=== PATIENT | female | born 1980 | race Caucasian/White ===

== ENCOUNTER 2017-08-21 17:01 | Emergency (ER) | payer OTHER ==
[~2017-08-21] VITALS: Ht 172.7 cm; Wt 121.6 kg
[~2017-08-21 17:01] MED LIST: DOCUSATE SODIU100 M3 PO; IBUPROFEN800 M1 PO; PERCOCET 5-3251 EACH PO; REGLAN10 MG PO
--- NOTE | 2017-08-21 17:13 | ED GENERAL ADULT ---
History of Present Illness General Chief Complaint: General Adult Stated Complaint: 30 WKS PREG WITH ABD PAIN AND CRAMPING Source: patient Exam Limitations: no limitations Vital Signs & Intake/Output Vital Signs & Intake/Output Vital Signs Date Time Temp Pulse Resp B/P B/P Pulse O2 O2 Flow FiO2 Mean Ox Delivery Rate 08/21 2002 98.2 64 18 116/66 97 Room Air Room Air 08/21 1706 98.0 70 18 126/77 967 Room Air Allergies Coded Allergies: shellfish derived (Severe, ANAPHYLAXIS 09/07/15) Penicillins (HIVES 07/19/15) Reconcile Medications Docusate Sodium 100 MG CAPSULE 100 MG PO AT BEDTIME PRN STOOL SOFTENER Ibuprofen 800 MG TABLET 800 MG PO Q6P PRN PAIN SCALE 4-6 Oxycodone HCl/Acetaminophen (Percocet 5-325 MG Tablet) 1 EACH TABLET 1 TAB PO Q4P PRN PAIN SCALE 7-8 Triage Note: RECEIVED 36 YO FEMALE 30 WEEKS , , PT DUE 11/02/17. PT REPORTS LOWER ABOMINAL CRAMPING X ONE WEEK WITH NAUSEA AND DIARRHEA. PT WAS SEEN IN AN ED LAST WEEK FOR VAGINAL SPOTTING, U/S DONE. SPOKE TO GARY IN [facility] WHO IS REQUESTING PT BE INITIALLY EVALUATED IN THE ED. POSITIVE MOVEMENTS. Triage Nurses Notes Reviewed? yes Onset: Abrupt Duration: day(s): Timing: recent history HPI: 08/21/17 8:34 PM This is a 36-year-old 2 para 1 female who presents to the emergency department for vomiting, diarrhea, and abdominal cramping. She says she was recently seen in the emergency department for the same symptoms. She says she's been evaluated several times in the childbirth center and told that she had low amniotic fluid levels. She is requesting ultrasound. She says her ART TEACHER physician Dr. Purvis Center in for evaluation. She denies fever, abdominal pain, or vaginal bleeding good. Past History Travel History Traveled to [place] past 21 day No Medical History Any Pertinent Medical History? see below for history Neurological: NONE EENT: NONE Cardiovascular: NONE Respiratory: NONE Gastrointestinal: NONE Surgical History Surgical History: non-contributory Psychosocial History What is your primary language Czech Family History Hx Contributory? No Review of Systems Review of Systems Constitutional: Denies: fever. EENTM: Reports: no symptoms. Respiratory: Denies: short of breath. Cardiovascular: Denies: chest pain. GI: Reports: vomiting. Denies: abdominal pain. Genitourinary: Reports: no symptoms. Musculoskeletal: Reports: no symptoms. Skin: Reports: no symptoms. Neurological/Psychological: Reports: no symptoms. Hematologic/Endocrine: Reports: no symptoms. Immunologic/Allergic: Reports: no symptoms. Physical Exam Physical Exam General Appearance: well developed/nourished, alert, awake, anxious, mild distress Head: atraumatic, normal appearance Eyes: Bilateral: normal appearance, PERRL, EOMI. Ears, Nose, Throat: normal pharynx, normal ENT inspection Neck: normal inspection, supple, full range of motion Respiratory: normal breath sounds, chest non-tender, no respiratory distress Cardiovascular: regular rate/rhythm Peripheral Pulses: 4+ radial (R), 4+ radial (L) Gastrointestinal: non-tender Back: normal range of motion Extremities: no edema Neurologic/Psych: no motor/sensory deficits, awake, alert, oriented x 3 Skin: intact, normal color, warm/dry Core Measures ACS in differential dx? No CVA/TIA Diagnosis: No Sepsis Present: No Sepsis Focused Exam Completed? No Progress Differential Diagnoses I considered the following diagnoses in my evaluation of the patient: [ labor, oligohydramnios, dehydration, gastroenteritis, urinary tract infection] Plan of Care: Orders Procedure Date/time Status RAPID VIRAL INFLUENZA A 08/21 1720 Complete CULTURE,URINE 08/21 171 Active URINALYSIS 08/21 171 Complete COMPREHENSIVE METABOLIC PANEL 08/21 171 Complete CBC WITHOUT DIFFERENTIAL 08/21 171 Complete ACETONE 08/21 171 Complete Current Medications Sig/Tristan Start time Last Medication Dose Stop Time Status Admin Sodium Chloride 1,000 ML ONCE ONE 08/21 1715 AC 08/21 (Normal Saline 0.9%) 08/21 2354 1736 Laboratory Tests 08/21/17 1842: Urinalysis MOD H, Urine Color YEL, Urine Clarity CLDY H, Urine pH 6.5, Ur Specific Bluebell 1.025, Urine Protein NEG, Urine Ketones 15 H, Urine Nitrite NEG, Urine Bilirubin NEG, Urine Urobilinogen 0.2, Ur Leukocyte Esterase TRACE H , Ur Microscopic SEDIMENT EXAMINED, Urine RBC RARE, Urine WBC 1-3 H, Ur Epithelial Cells MANY H, Urine Bacteria MOD H, Urine Hemoglobin NEG, Urine Glucose NEG 08/21/17 1730: Anion Gap 8, Estimated GFR > 60, BUN/Creatinine Ratio 17.5, Glucose 87, Calcium 9.7, Total Bilirubin 0.3, AST 14, ALT 17, Alkaline Phosphatase 73, Total Protein 6.3, Albumin 3.4 L, Globulin 2.9, Albumin/Globulin Ratio 1.2, CBC w Diff NO MAN DIFF REQ, RBC 3.68 L, MCV 94.3, MCH 32.2 H, MCHC 34.1, RDW 13.2, MPV 7.7, Gran % 72.2, Lymphocytes % 20.2 L, Monocytes % 6.2, Eosinophils % 1.0, Basophils % 0.4, Absolute Granulocytes 7.2 H, Absolute Lymphocytes 2.0, Absolute Monocytes 0.6, Absolute Eosinophils 0.1, Absolute Basophils 0, Acetone Level NEGATIVE Microbiology 08/22 1843 NASOPHARYN: Influenza Virus A & B Rapid Smear - COMP 08/21 1841 URINE ROUT: Urine Culture - RECD Initial ED EKG: none Departure Departure Disposition: HOME OR SELF CARE Condition: Stable Clinical Impression Primary Impression: Referrals: Aaron MERCER,Nilesh Contreras (PCP/Family) Departure Forms: Customer Survey General Discharge Information Comments PATIENT: ROLA MERRITT PRESENT AGE: 36 PATIENT ACCOUNT NO: [id number] : 78 LOCATION: [facility] ORDERING PHYSICIAN: Chaparro Wu DO SERVICE DATE: 08/21/17 EXAM TYPE: US - US- VIABILITY Examination: US- VIABILITY Indication: 30 WEEKS CRAMPING Comparison: No pertinent prior studies are currently available for comparison. Technique: Multiple sonographic views of the fetus were obtained in patient with an unknown last menstrual period with an ultrasound estimated age of 29 weeks 5 days. Findings: The examination reveals a single live intrauterine . heart rate of 132 bpm was obtained. There is normal amniotic fluid volume. Amniotic index is 24.5 cm. Posterior placenta Fetus is in transverse breech position. motion was seen. biometrics are as follows: BPD 7.81 cm (31 weeks 3 days HC 27.89 cm (30 weeks 4 days), AC 24.65 cm (29 weeks 0 days) FL 5.16 cm (27 weeks 4 days). This corresponds with an ultrasound estimated mean age of 29 weeks 5 days and an estimated due date of 11/01/2017. Estimated weight is 1281 +/- 1 187 g. Impression: Single live intrauterine of 29 weeks 5 days ultrasound estimated mean age as described above. DICTATED BY: Colby Vance MD DATE/TIME DICTATED:08/21/171902 EMERGENCY PHYSICIAN:LETTY DATE/TIME TRANSCRIBED:08/21/171902 CONFIDENTIAL, DO NOT COPY WITHOUT APPROPRIATE AUTHORIZATION. <Electronically signed in Other Vendor System> SIGNED BY: Colby Vance MD 1913 The patient's labs were unremarkable. Ultrasound showed normal amount of amniotic fluid. The patient received a liter of IV fluids. She denied any abdominal pain in the Emergency Department. She was instructed to go to the childbirth Center for monitoring however she refused. She says she has no symptoms now and is following up with Dr. Purvis tomorrow. I discussed the patient's care with Dr. Purvis who agreed with the plan. The patient was instructed to return immediately to the emergency department if fever, vomiting, or any abdominal pain. She will follow-up with Dr. Purvis tomorrow morning. Critical Care Note Critical Care Note Critical Care Time: non-applicable
[2017-08-21 17:43] LABS: ABSOLUTE BASOPHIL COUNT 0 /CUMM (0.0-0.2); ABSOLUTE EOSINOPHIL COUNT 0.1 /CUMM (0.0-0.7); ABSOLUTE GRANULOCYTE CT 7.2 /CUMM (1.4-6.5); ABSOLUTE MONOCYTE COUNT 0.6 /CUMM (0.10-0.60); BASOPHIL % 0.4 % (0.0-2.0); GRANULOCYTE % 72.2 % (42.2-75.2); HEMATOCRIT 34.7 % (37-47); MEAN CORPUSCULAR HGB 32.2 PG (27.0-31.0); MEAN CORPUSCULAR HGB CONC 34.1 G/DL (33.0-37.0); MEAN CORPUSCULAR VOLUME 94.3 FL (81.0-99.0); MEAN PLATELET VOLUME 7.7 FL (7.4-10.4); PLATELET COUNT 265 /CUMM (130-400); RBC DISTRIBUTION WIDTH 13.2 % (11.5-14.5); RED BLOOD CELL CT 3.68 /CUMM (4.20-5.40)
--- NOTE | 2017-08-21 19:14 | ULTRASOUND REPORT ---
Examination: US- VIABILITY Indication: 30 WEEKS CRAMPING Comparison: No pertinent prior studies are currently available for comparison. Technique: Multiple sonographic views of the fetus were obtained in patient with an unknown last menstrual period with an ultrasound estimated age of 29 weeks 5 days. Findings: The examination reveals a single live intrauterine . heart rate of 132 bpm was obtained. There is normal amniotic fluid volume. Amniotic index is 24.5 cm. Posterior placenta Fetus is in transverse breech position. motion was seen. biometrics are as follows: BPD 7.81 cm (31 weeks 3 days HC 27.89 cm (30 weeks 4 days), AC 24.65 cm (29 weeks 0 days) FL 5.16 cm (27 weeks 4 days). This corresponds with an ultrasound estimated mean age of 29 weeks 5 days and an estimated due date of 11/01/2017. Estimated weight is 1281 +/- 1 187 g. Impression: Single live intrauterine of 29 weeks 5 days ultrasound estimated mean age as described above.
[2017-08-21 20:03] VITALS: BP 116/66
== END 2017-08-21 20:45 ==
LOC: ERH 17:01
PROVIDERS: Emergency Medicine
DX: O26.93 Pregnancy related conditions, unspecified, third trimester (principal); R10.9 Unspecified abdominal pain; Z3A.30 30 weeks gestation of pregnancy
CPT/HCPCS: 81001; 87086; 87804; 87804-59

== ENCOUNTER 2017-11-02 06:03 | Inpatient (IN) | payer OTHER ==
[~2017-11-02] VITALS: Ht 172.7 cm; Wt 122.5 kg
[~2017-11-02 06:03] MED LIST changes: +DELTASONE20 MG PO; +PROAIR HFA8.5 GM INH; +VITAFOL ULTRA1 EACH PO
--- NOTE | 2017-11-02 08:52 | History & Physical Pre-Op ---
General Information and HPI MD Statement: I have seen and personally examined ROLA MERRITT and documented this H&P. The patient is a 36 year old F who presented with a patient stated chief complaint of repeat section and multiparity []. History of Present Illness: 36-year-old 2 para 1001 at 39 weeks gestation previous section with a history of bipolar disease who is had adequate care adequate care was a late registrant but was compliant with her care. Patient has had polyhydramnios throughout her she's had normal anatomy scans on her lab work has been normal I she desires permanent sterility a tu a tubal ligation we've discussed the risks and benefits and failure rates of one every 2014 that we performbal ligation we have discussed the risks and benefits and failure rates of 1 every 2049 that we performed with patient has had polyhydramnios throughout her she has had normal anatomy scans was a late registrant but was compliant with her care. B her lab work has been normal she desires permanent sterility with ipolar disease who is had 36- year-old 2 para 1001 at 39 weeks gestation with previous section with a history of Allergies/Medications Allergies: Coded Allergies: shellfish derived (Severe, ANAPHYLAXIS 09/07/15) Penicillins (HIVES 07/19/15) Home Med list Albuterol Sulfate (Proair Hfa) 90 MCG HFA.AER.AD 2 PUF INH Q6 PRN ASTHMA/ WHEEZING Pnv#67/Iron Ps/FA Cmb#1/Dha (Vitafol Ultra Softgel) 29 MG IRON-1 MG-200 MG CAPSULE 1 CAP PO DAILY (Reported) Past History Medical History Neurological: NONE EENT: NONE Cardiovascular: NONE Respiratory: NONE Gastrointestinal: NONE Hepatic: NONE Renal: NONE Musculoskeletal: NONE Psychiatric: NONE Endocrine: NONE Blood Disorders: NONE Cancer(s): NONE Surgical History Pertinent Surgical History: non-contributory Past Family/Social History Psychosocial History Smoking Status: Current Everyday Smoker Review of Systems Review of Systems: --13 point review of systems Exam & Diagnostic Data Last 24 Hrs of Vital Signs/I&O Intake & Output 11/02 1600 / 0800 11/02 0000 Intake Total Output Total Balance Patient 270 lb Weight Physical Exam: Obese white femaleObese white female HEENT icteric Lungs clear Heart S1 and S2 Abdomen soft nontenderHEENT anicteric Lungs clear Heart S1-S2 Abdomen soft nontender and sealed skin incision Pfannenstiel skin incision External is +1 edema negative Homans sign cervix long closed Cervix long closed extremities +1 edema negative Homans Assessment/Plan Assessment/Plan: Assessment term previous section multiparity excellent plan clindamycin and gentamicin section tubal ligation Plan clindamycin and gentamicin section tubal ligation aterm previous section multiparity Assessment As Ranked By This Provider Problem List: 1.
--- NOTE | 2017-11-02 09:03 | Operative Report ---
Operative/Inv Procedure Report Surgery Date: 11/02/17 Name of Procedure: Repeat low flap transverse section bilateral tubal ligation via Irma technique Pre-Operative Diagnosis: Multiparity term previous sectio Post-Operative Diagnosis: Same Estimated Blood Loss: 750 Surgeon/Mechanical Test Technician: Yaniv MERCER,Claudette Stephen Anesthesia: block Operative/Procedure Note Note: Procedure note patient was taken to the operating room placed on position after adequate skin testing for spinal anesthesia and timeout was performed antibiotics have been given the abdomen was prepped and draped so fashion Blackwell had been placed sterilely this point through an old Pfannenstiel skin incision skin was cut was carried down to rectus fascia which was cut in curvilinear fashion I direction peritoneal cavity was entered high into the abdomen . The lower blade the Rumney was placed in the lower end of the incision to protect the bladder the bladder flap was developed sharply as well as bluntly hemostasis was apparent in the lower uterine segment the uterus was nicked into with the back of the knife's point on sponge moved from the field incision was dissected bluntly over the abdominal wall the cord was clamped and cut was handed resolution rep was waiting delivering to aid in resuscitation placenta was delivered manually noted to be intact was wiped clean with wet dry laps to ensure was free of adherent membranes uses oversewn running locking suture was indicated interrupted [id number] hemostasis was apparent at this point the right tube was picked up with a Zeyad identified suture-ligated 3 caulked beaklike left tube was picked up carried to its fimbriated end possibly 7 cm that tube was clamped times to contact oversewn 3 endosalpinx was Bovie coagulated hemostasis was apparent. The uterus was returned to abdominal cavity all pedicles incisions were reexamined and found to be hemostatic intact the abdomen was area close amounts warm saline once again peritoneum surprise me 0 partial was reapproximated to continue sutures of #1 skin was reapproximated using latisha the end of the case the counts were correct. Sterile dressing was applied urine was clear and transported recovery room awake alert with possibly 7 centimeters of that tube was clamped cut and oversewn 3 the specimen was removed and sent to pathology the endosalpinx was Bovie coagulated. Tolerated well the uterus was turned to the abdominal cavity the incisions were reexamined found to be hemostatic the abdomen was irrigated copious amounts of saline to clear was clamped cut and oversewn 3 specimen was removed sent to pathology the endosalpinx Bperitoneum was reapproximated 0 the fascia was reapproximated into condition sutures 1 scheduled approximate latisha at the end the case counts correct urine was clear mother and were transferred recovery room awake alert with counts correct ovie coagulated. Tolerated well perineum was reapproximated 0 fascia was reported to continue sutures #1 skin was reapproximated latisha at the end the case counts were correct the uses transabdominal cavity the incisions were reexamined found to be hemostatic the abdomen was irrigated) once into clear urine was clear mother and infant were transferred recovery room awake and alert counts correct centimeters of that tube endosalpinx after the specimen had been removed and oversewn 3 left tube was picked up carried through to be examined approximately 7 cm tube was Bovie coagulated d was closed with running locking suture . 0 was imbricated with interrupted [id number] the right tube was picked up chart was reviewed and approximately 7 cm at tube was clamped cut and oversewn 3 Al wall cord was clamped 2 cut and the infant was handed to pediatricians waiting the liver and in the resuscitationdissected bluntly as well as sharply AND significant for field placenta was delivered manually noted to be intact was likely due to a dry laps to ensure it is free of adherent membranes the uterus is delivered onto the abdominal wall. And with the back and knife dissected bluntly as well as sharply wants something from the field the lower uterine segment use, and the peritoneal cavity was entered high into the abdomen to avoid the bladder the lower blade of the Tom was placed in lower into the incision the visceral peritoneum of the uterus was dissected anteriorly the lower uterine segment was thin presented with the back of the knife the bladder blade had been replaced to protect the bladder patient tolerated this well. Skin testing was performed and found to be adequate for surgery the abdomen was prepped and draped in sterile fashion onal patient was taken to the operating room placed in supine position
--- NOTE | 2017-11-03 12:22 | PN- Post Delivery/GYN ---
Subjective Subjective: C/O SOB Objective Last 24 Hrs of Vital Signs/I&O Vital Signs Date Time Temp Pulse Resp B/P B/P Pulse O2 O2 Flow FiO2 Mean Ox Delivery Rate 11/02 1843 Room Air Physical Exam: PE WELL BUILT WF IN NAD LUNG S DECREASE BS AT BOTH BASES ABD SOFT NT INCISION CDI EXT -EDEMA -RIANNA Assessment/Plan Assessment/Plan ASSESS S/P C/S SOB QUESTION PE PNEUMONIA HISTORY OF MANIC DEPRESSION PLAN MED CONSULT AND PYSCHIATRY
--- NOTE | 2017-11-03 12:34 | Cons- Psychiatry ---
Psychiatric Consult Date of Consult: 11/03/17 Reason for Consult: Management of a bipolar disorder. History of Present Illness: Patient is a 36-year-old single white female S/P on 11/02/17, history of Bipolar (? Bipolar II), off medications since 22 weeks of . Mood was "okay" during the remainder of . Yesterday and today experienced anxiety and tearfulness. No wishes of or thinking of suicide. No thoughts or urges to harm baby or anyone else. No manic and no psychotic symptoms. Cognitively intact. Allergies: Coded Allergies: shellfish derived (Severe, ANAPHYLAXIS 09/07/15) Penicillins (HIVES 07/19/15) Current Medications: Current Medications Sig/Tristan Start time Last Medication Dose Route Stop Time Status Admin Acetaminophen 1,000 MG Q6P PRN 11/02 1145 AC 11/03 N/A 1 UNIT IV 0334 Acetaminophen 650 MG Q4P PRN 11/02 0800 AC PO Albuterol Sulfate 3 ML BID 11/03 2100 AC INH Albuterol Sulfate 2 PUF Q4P PRN 11/02 1845 AC 11/03 INH 1201 Alprazolam 0.25 MG Q6P PRN 11/02 2000 AC 11/03 PO 11/09 195 1321 Benzonatate 100 MG TID 11/03 2100 AC PO Bisacodyl 5 MG DAILY NEEDED PRN 11/02 0800 AC PO Diphenhydramine HCl 25 MG Q6P PRN 11/02 0930 DC 11/02 IV 11/03 0829 1019 Docusate Sodium 100 MG AT BEDTIME PRN 11/02 0800 AC PO Enoxaparin Sodium 40 MG 2030 11/02 2030 AC 11/02 SC 2036 Guaifenesin 600 MG Q12 11/03 2100 AC PO Hydroxyzine HCl 50 MG AT BEDTIME NEED.. 11/03 0000 AC PO Ibuprofen 800 MG Q6P PRN 11/02 0800 AC 11/03 PO 1710 Ketorolac 30 MG Q6P PRN 11/02 0930 DC 11/03 Tromethamine IV 11/03 0929 0618 Lactated Ringer's 1,000 ML Q8H 11/02 0800 AC 11/03 IV 0230 Lactated Ringer's 1,000 ML Q8H 11/02 0645 AC 11/02 IV 0622 Magnesium Hydroxide 30 ML DAILY NEEDED PRN 11/03 799 AC PO Metoclopramide HCl 10 MG Q6P PRN 11/02 0815 DC IV 11/03 09 Naloxone HCl 0.2 MG .Q5MIN PRN 11/02 0815 DC IV 11/03 913 Oxycodone/ 1 TAB Q4P PRN 11/02 08 AC 11/03 Acetaminophen PO 0915 Oxycodone/ 2 TAB Q4P PRN 11/02 08 AC 11/03 Acetaminophen PO 1710 Prednisone 40 MG DAILY 11/03 1803 AC PO 11/06 09 Senna 187 MG AT BEDTIME NEED.. 11/02 08 AC PO Past History Past Medical History Neurological: NONE EENT: NONE Cardiovascular: NONE Respiratory: NONE Gastrointestinal: NONE Hepatic: NONE Renal: NONE Musculoskeletal: NONE Psychiatric: NONE Endocrine: NONE Blood Disorders: NONE Cancer(s): NONE Past Surgical History Surgical History: non-contributory Psychosocial History Strengths/Capabilities: supportive boyfriend at bedside, good insight, no evidence of alcohol or drug abuse Physical Limitations (Interventions): denied Psychiatric Treatment History Psych Treatment Psychiatric Treatment Yes Inpatient Treatment No Outpatient Treatment Yes Location of Treatment [facility] Reason for Treatment ? Bipolar (may be Bipolar II) Dates of Treatment up until 22 weeks of this Response to Treatment she said she was doing well on a regimen of 3 medications Diagnosis: Bipolar with post- worsening by history Risk Factors: Mood Disorder with post- worsening by history Substance Use/Abuse History Drug Use/Abuse Substances Used/Abused No Substance Abuse Treatment Substance Abuse Treatment Past Substance Abuse [place] No Assessment/Plan Mental Status Mental Status Exam: alert and oriented to time, place, and person calm, cooperative and pleasant boyfriend/father of child at bedside, baby at bedside normal speech/not pressured/not slurred normal psychomotor activity/no agitation or restlessness good eye contact, cognitively intact, normal intelligence mood was not depressed until yesterday and today, reported some tearfulness no sense of hopelessness, no sense of worthlessness, not consumed by guil denied wishing or thinking of suicide denied violent thoughts or homicidal thoughts or urges towards baby or anyone else denied feeling paranoid and there were no delusions she was coherent and no thought disorder denied hallucinations and did not seem to be hallucinating no issues with information processing or short term memory good judgement and insight Lab Results: Laboratory Tests 11/03 1700 Hematology CBC w Diff NO MAN DIFF REQ WBC (4.8 - 10.8 /CUMM) 9.1 RBC (4.20 - 5.40 /CUMM) 3.47 L Hgb (12.0 - 16.0 G/DL) 10.8 L Hct (37 - 47 %) 32.1 L MCV (81.0 - 99.0 FL) 92.6 MCH (27.0 - 31.0 PG) 31.1 H MCHC (33.0 - 37.0 G/DL) 33.6 RDW (11.5 - 14.5 %) 13.3 Plt Count (130 - 400 /CUMM) 228 MPV (7.4 - 10.4 FL) 8.1 Gran % (42.2 - 75.2 %) 70.4 Lymphocytes % (20.5 - 51.1 %) 23.7 Monocytes % (1.7 - 9.3 %) 5.4 Eosinophils % (0 - 5 %) 0.3 Basophils % (0.0 - 2.0 %) 0.2 Absolute Granulocytes (1.4 - 6.5 /CUMM) 6.4 Absolute Lymphocytes (1.2 - 3.4 /CUMM) 2.2 Absolute Monocytes (0.10 - 0.60 /CUMM) 0.5 Absolute Eosinophils (0.0 - 0.7 /CUMM) 0 Absolute Basophils (0.0 - 0.2 /CUMM) 0 Diffential Diagnosis: Unspecified Bipolar (likely Bipolar II) with history of post- depressions Impression: 36-year-old white female who has been treated historically for bipolar disorder. She was seeing a psychiatric [facility] who was prescribing her a combination of Risperdal, lithium, and Xanax. The patient stopped all these medications when she was about 22 weeks . She reported that she has not been back to see the psychiatric nurse practitioner since. The patient did not have any major symptoms of depressive episode or manic episode for the duration of her but reported that she was starting to feel somewhat panicky yesterday and today and she is worried that the depression is a strong possibility and she wants to get ahead of it. She reported that she did have depression after a previous delivery. No current evidence of risk to self or baby. Provisional Treatment Plan: Recommendations: No need for inpatient psychiatric care. Patient may be discharged at the will of her DENTAL SALES REPRESENTATIVE attending The patient has the capacity to make treatment decisions including signing AGAINST MEDICAL ADVICE. I recommend replacing Xanax with Klonopin 1 mg to be taken once daily as needed either for anxiety or for insomnia I discussed options with the patient and she was agreeable to starting Lexapro 10 mg once daily until she sees her psychiatric nurse practitioner
--- NOTE | 2017-11-03 15:47 | Cons- Medical ---
Maricruz Mark 11/03/17 1546: General Information and HPI Consulting Request Date of Consult: 11/03/17 Requested By: Yaniv MERCER,Claudette Ochoa Reason for Consult: Shortness of breath Source of Information: patient Exam Limitations: no limitations History of Present Illness: Patient is a 36-year-old female, past medical history of asthma, recently had a on 11/04/17, reported of having difficulty breathing. Patient reports that she has been having difficulty breathing since past 3 weeks, at that time she informed Dr. Benitez, and she was given Z-Lane. Patient states that she did not get any relief with a Z-Lane and 2 weeks ago, she came to ER at that time she was given prednisone and inhaler. Patient states that chest x-ray could not be done as she was at that time. And she reports that her symptoms did not improve with the steroids. She has been using inhalers 3-4 times daily. She also reports off dry cough since 3 weeks. She did initially have greenish sputum but that cleared to white and nonproductive. Patient denies any fever or chills, any sick contacts at home. She states that her last asthma exacerbation was 3 years ago and she has been stable. Patient also reports oF pregnacy related bilateral lower extremity swelling. Patient denies any chest pain, palpitations, headache, dizziness, burning micturition. Allergies/Medications Allergies: Coded Allergies: shellfish derived (Severe, ANAPHYLAXIS 09/07/15) Penicillins (HIVES 07/19/15) Home Med List: Albuterol Sulfate (Proair Hfa) 90 MCG HFA.AER.AD 2 PUF INH Q6 PRN ASTHMA/ WHEEZING Pnv#67/Iron Ps/FA Cmb#1/Dha (Vitafol Ultra Softgel) 29 MG IRON-1 MG-200 MG CAPSULE 1 CAP PO DAILY (Reported) Current Medications: Current Medications Sig/Tristan Start time Last Medication Dose Route Stop Time Status Admin Acetaminophen 1,000 MG Q6P PRN 11/02 1145 AC 11/03 N/A 1 UNIT IV 0334 Acetaminophen 650 MG Q4P PRN 11/02 0800 AC PO Albuterol Sulfate 2 PUF Q4P PRN 11/02 1845 AC 11/03 INH 1201 Alprazolam 0.25 MG Q6P PRN 11/03 1999 AC 11/03 PO 11/09 195 1321 Benzonatate 100 MG TID 11/03 2100 UNVr PO Bisacodyl 5 MG DAILY NEEDED PRN 11/02 08 AC PO Diphenhydramine HCl 25 MG Q6P PRN 11/02 0930 DC 11/02 IV 11/03 0929 1019 Docusate Sodium 100 MG AT BEDTIME PRN 11/02 0800 AC PO Enoxaparin Sodium 40 MG 2030 11/02 2029 AC 11/02 SC 2036 Guaifenesin 600 MG Q12 11/03 2100 AC PO Hydroxyzine HCl 50 MG AT BEDTIME NEED.. 11/03 0000 AC PO Ibuprofen 800 MG Q6P PRN 11/02 08 AC 11/03 PO 1710 Ketorolac 30 MG Q6P PRN 11/02 0930 DC 11/03 Tromethamine IV 11/03 0929 0618 Lactated Ringer's 1,000 ML Q8H 11/02 0800 AC 11/03 IV 0230 Lactated Ringer's 1,000 ML Q8H 11/02 0645 AC 11/02 IV 0622 Magnesium Hydroxide 30 ML DAILY NEEDED PRN 11/02 08 AC PO Metoclopramide HCl 10 MG Q6P PRN 11/02 0915 DC IV 11/03 0914 Naloxone HCl 0.2 MG .Q5MIN PRN 11/02 0915 DC IV 11/03 0914 Oxycodone/ 1 TAB Q4P PRN 11/02 0800 AC 11/03 Acetaminophen PO 0915 Oxycodone/ 2 TAB Q4P PRN 11/02 08 AC 11/03 Acetaminophen PO 1710 Prednisone 40 MG DAILY 11/03 1803 UNVr PO 11/06 0901 Senna 187 MG AT BEDTIME NEED.. 11/02 0800 AC PO Review of Systems Review of Systems Constitutional: Reports: see HPI. Past History Travel History Traveled to [place] past 21 day No Medical History Neurological: NONE EENT: NONE Cardiovascular: NONE Respiratory: NONE Gastrointestinal: NONE Hepatic: NONE Renal: NONE Musculoskeletal: NONE Psychiatric: NONE Endocrine: NONE Blood Disorders: NONE Cancer(s): NONE Surgical History Surgical History: non-contributory Psychosocial History Smoking Status: Current Everyday Smoker Exam & Diagnostic Data Last 24 Hrs of Vital Signs/I&O Vital Signs Date Time Temp Pulse Resp B/P B/P Pulse O2 O2 Flow FiO2 Mean Ox Delivery Rate 11/02 1843 Room Air Physical Exam General Appearance: well developed/nourished, no apparent distress, alert, awake , comfortable Head: atraumatic, normal appearance Eyes: Bilateral: normal appearance. Ears, Nose, Throat: normal pharynx Neck: normal inspection, supple Respiratory: normal breath sounds Cardiovascular: regular rate/rhythm Gastrointestinal: normal bowel sounds, soft, non-tender Extremities: b/l 1+ edema Last 24 Hrs of Labs/Michael: Laboratory Tests 11/03/17 1700: CBC w Diff NO MAN DIFF REQ, RBC 3.47 L, MCV 92.6, MCH 31.1 H, MCHC 33.6, RDW 13.3, MPV 8.1, Gran % 70.4, Lymphocytes % 23.7, Monocytes % 5.4, Eosinophils % 0.3, Basophils % 0.2, Absolute Granulocytes 6.4, Absolute Lymphocytes 2.2, Absolute Monocytes 0.5, Absolute Eosinophils 0, Absolute Basophils 0 Diagnostic Data CXR Results Bibasilar atelectasis Assessment/Plan Assessment/Plan Patient is a 36-year-old female, past medical history of asthma, recently had a on 11/04/17, reported of having difficulty breathing. Patient reports that she has been having difficulty breathing since past 3 weeks, at that time she informed Dr. Benitez, and she was given Z-Lane. Patient states that she did not get any relief with a Z-Lane and 2 weeks ago, she came to ER at that time she was given prednisone and inhaler. Patient states that chest x-ray could not be done as she was at that time. And she reports that her symptoms did not improve with the steroids. She has been using inhalers 3-4 times daily. She also reports off dry cough since 3 weeks. She did initially have greenish sputum but that cleared to white and nonproductive. Patient denies any fever or chills, any sick contacts at home. She states that her last asthma exacerbation was 3 years ago and she has been stable. Patient also reports oF pregnacy related bilateral lower extremity swelling. Patient denies any chest pain, palpitations, headache, dizziness, burning micturition. Assessment and plan The patient's difficulty breathing could be due to her bronchitis, of note she doesn't have any temperature and her breath sounds are normal bilaterally. Will start her on 40 prednisone daily and stop after 4 doses. Will get CBC in the morning to evaluate for any white count. Will continue her albuterol inhaler. Given her Mucinex to loosen up the phlegm, tesslon for cough. Consult Acknowledgment - Thank you for your consult request. Vu Harvey MD 11/03/17 6140: Assessment/Plan Consult Acknowledgment - Thank you for your consult request. Attending MD Review Statement Attending Statement Attending MD Statement: examined this patient, discuss w/resident/PA/AUTO BUMPER STRAIGHTENER, agreed w/resident/PA/AUTO BUMPER STRAIGHTENER, reviewed EMR data (avail) Attending Assessment/Plan: Agree with resident plan. Will obtain CXR to evaluate for pneumonia, start Prednisone and nebulizer treatments, will continue to monitor.
--- NOTE | 2017-11-03 17:09 | RADIOLOGY REPORT ---
EXAMINATION: XR PORTABLE CHEST CLINICAL INFORMATION: Difficulty breathing. COMPARISON: None. TECHNIQUE: AP portable upright view of the chest FINDINGS: Lung volumes our low. There is mild bibasilar atelectasis. No consolidation, pneumothorax, or pleural effusion. Cardiac silhouette is within normal limits in size for technique. Mediastinal contour is normal. Osseous structures are unremarkable. IMPRESSION: Low lung volumes with mild bibasilar atelectasis. Otherwise unremarkable radiographs.
[2017-11-03 17:17] LABS: ABSOLUTE BASOPHIL COUNT 0 /CUMM (0.0-0.2); ABSOLUTE EOSINOPHIL COUNT 0 /CUMM (0.0-0.7); ABSOLUTE GRANULOCYTE CT 6.4 /CUMM (1.4-6.5); ABSOLUTE LYMPH COUNT 2.2 /CUMM (1.2-3.4); ABSOLUTE MONOCYTE COUNT 0.5 /CUMM (0.10-0.60); BASOPHIL % 0.2 % (0.0-2.0); EOSINOPHIL % 0.3 % (0-5); GRANULOCYTE % 70.4 % (42.2-75.2); HEMATOCRIT 32.1 % (37-47); MEAN CORPUSCULAR HGB 31.1 PG (27.0-31.0); MEAN CORPUSCULAR HGB CONC 33.6 G/DL (33.0-37.0); MEAN CORPUSCULAR VOLUME 92.6 FL (81.0-99.0); MEAN PLATELET VOLUME 8.1 FL (7.4-10.4); PLATELET COUNT 228 /CUMM (130-400); RBC DISTRIBUTION WIDTH 13.3 % (11.5-14.5); RED BLOOD CELL CT 3.47 /CUMM (4.20-5.40); WHITE BLOOD CELL COUNT 9.1 /CUMM (4.8-10.8)
--- NOTE | 2017-11-04 11:21 | PN- Post Delivery/GYN ---
Subjective Subjective: NO COMPLAINTS Objective Last 24 Hrs of Vital Signs/I&O PER CHART Physical Exam: PE OBESE WF IN NAD ABD SOFT NT LOCHIA MINMAL EXT -EDEMA -HOMANS FUNDUS FIRM NT Assessment/Plan Assessment/Plan ASSESS S/P C/S PLAN APPRECIATE [facility] CONSULT
--- NOTE | 2017-11-04 14:45 | PN- Medicine Consult ---
Oriana MERCER,Dorene 11/04/17 1432: Assessment/PlanMedical Consult Assessment/Plan Assessment: Patient is a 36 YO F with PMH of asthma, delivered yesterday preceeded by recent bronchitis s/p Zpak and steroids. Medicine was consulted as she had shortness of breath despite recent treatement. She was started on Incentive spirometry, inhalers and short steroid taper. She remains stable on room air at this time with good improvement on inhalers. She reports dry cough with incentive spirometry but overall feels better. Exam - rhonchi scattered in the upper mcgrath. CXR did show low lung volumes with bibasilar atelectasis. plan 1. Continue steriods for atleast next 3 days 2. Strongly encouraged to continue incentive spirometry given atelectasis on CXR 3. TRC/Nebs 4. Ensure DVT prophylaxis Please call with any questions any time. Recommendations are not final until attending addendum follows. Plan: as above Problem List: 1. Bronchitis 2. S/P Subjective Subjective: feels better with inhalers, reports dry cough. Otherwise no issues Review of Systems Constitutional: Reports: see HPI. Objective Last 24 Hrs of Vital Signs/I&O Vital Signs Date Time Temp Pulse Resp B/P B/P Pulse O2 O2 Flow FiO2 Mean Ox Delivery Rate 11/04 0940 98 Room Air Physical Exam General Appearance: well developed/nourished, no apparent distress, alert, awake , comfortable Head: atraumatic, normal appearance Ears, Nose, Throat: normal pharynx Neck: normal inspection, supple Cardiovascular: regular rate/rhythm, normal S1, S2 Respiratory: chest non-tender, no respiratory distress, quiet respiration, scattered rhonchi present Peripheral Pulses: 2+ radial (R), 2+ radial (L) Abdomen: normal bowel sounds, soft Current Medications: Current Medications Sig/Tristan Start time Last Medication Dose Route Stop Time Status Admin Acetaminophen 1,000 MG Q6P PRN 11/02 1145 AC 11/03 N/A 1 UNIT IV 0334 Acetaminophen 650 MG Q4P PRN 11/02 0800 AC PO Albuterol Sulfate 3 ML BID 11/03 2100 AC 11/04 INH 0943 Albuterol Sulfate 2 PUF Q4P PRN 11/02 1845 AC 11/03 INH 1201 Alprazolam 0.25 MG Q6P PRN 11/03 1999 AC 11/03 PO 11/09 1958 1321 Benzonatate 100 MG TID 11/03 2100 AC 11/04 PO 1414 Bisacodyl 5 MG DAILY NEEDED PRN 11/02 08 AC PO Clonazepam 1 MG ONCE ONE 11/04 1115 DC PO 11/04 1116 Docusate Sodium 100 MG AT BEDTIME PRN 11/02 0800 AC 11/04 PO 1100 Enoxaparin Sodium 40 MG 2030 11/02 2029 AC 11/03 SC 2025 Escitalopram Oxalate 10 MG DAILY 11/05 899 AC PO Guaifenesin 600 MG Q12 11/03 2100 AC 11/04 PO 0924 Hydroxyzine HCl 50 MG AT BEDTIME NEED.. 11/03 0000 AC PO Ibuprofen 800 MG Q6P PRN 11/02 0800 AC 11/04 PO 1313 Lactated Ringer's 1,000 ML Q8H 11/02 0800 AC 11/03 IV 0230 Lactated Ringer's 1,000 ML Q8H 11/02 0645 AC 11/02 IV 0622 Magnesium Hydroxide 30 ML DAILY NEEDED PRN 11/02 08 AC PO Oxycodone/ 1 TAB Q4P PRN 11/02 08 AC 11/03 Acetaminophen PO 0915 Oxycodone/ 2 TAB Q4P PRN 11/02 08 AC 11/04 Acetaminophen PO 1100 Prednisone 40 MG DAILY 11/03 1803 AC 11/04 PO 11/06 0901 0924 Senna 187 MG AT BEDTIME NEED.. 11/02 0800 AC PO Results Last 24 Hrs Lab/Michael Results: Laboratory Tests 11/03/17 1700: CBC w Diff NO MAN DIFF REQ, RBC 3.47 L, MCV 92.6, MCH 31.1 H, MCHC 33.6, RDW 13.3, MPV 8.1, Gran % 70.4, Lymphocytes % 23.7, Monocytes % 5.4, Eosinophils % 0.3, Basophils % 0.2, Absolute Granulocytes 6.4, Absolute Lymphocytes 2.2, Absolute Monocytes 0.5, Absolute Eosinophils 0, Absolute Basophils 0 Vu Harvey MD 11/04/17 1507: Attending MD Review Statement Attending Sign Off Attending Cosign Statement: I have: examined this patient, reviewed [facility] EMR data, discussd w/resident/PA/ EARLY CHILDHOOD LEAD TEACHER, agreed w/resident/PA/EARLY CHILDHOOD LEAD TEACHER. Other Findings: Patient improving, will continue Prednisone and nebulizer treatments. See resident note for full details.
--- NOTE | 2017-11-05 07:45 | PN- Medicine Consult ---
Assessment/PlanMedical Consult Assessment/Plan Assessment: 36 year old woman with PMH of asthma, s/p repeat , h/o recent bronchitis treated with Zpak and steroids. Medicine consulted for shortness of breath despite recent treatement. She was started on Incentive spirometry, inhalers and short steroid taper. Afebrild overnight with stable vitals, saturating 97% on RA. CXR significant for low lung volumes with bibasilar atelectasis. Plan: plan 1. Continue steriods for a total of 4 days 2.continue incentive spirometry given atelectasis on CXR 3. TRC/Nebs 4. DVT prophylaxis 5.full code Thank you for your consult. Attending Recs to follow Please call with any questions pager#[phone] Subjective Subjective: Seen and examined patient this morning. Sitting up comfortably in bed. Offers no complaints. Denies fever, chills, shortness of breath or chest pain. Review of Systems Constitutional: Denies: see HPI. Objective Last 24 Hrs of Vital Signs/I&O Vital Signs Date Time Temp Pulse Resp B/P B/P Pulse O2 O2 Flow FiO2 Mean Ox Delivery Rate 11/04 1934 96 Room Air 11/04 0940 98 Room Air Physical Exam General Appearance: alert, awake, comfortable Cardiovascular: regular rate/rhythm Respiratory: normal breath sounds, lungs clear Extremities: no edema Current Medications: Current Medications Sig/Tristan Start time Last Medication Dose Route Stop Time Status Admin Acetaminophen 1,000 MG Q6P PRN 11/02 1145 AC 11/03 N/A 1 UNIT IV 0334 Acetaminophen 650 MG Q4P PRN 11/02 0800 AC PO Albuterol Sulfate 3 ML BID 11/03 2100 AC 11/04 INH 0943 Albuterol Sulfate 2 PUF Q4P PRN 11/02 1845 AC 11/03 INH 1201 Alprazolam 0.25 MG Q6P PRN 11/02 2000 AC 11/04 PO 11/09 195 2021 Benzonatate 100 MG TID 11/03 2100 AC 11/04 PO 2104 Bisacodyl 5 MG DAILY NEEDED PRN 11/02 0800 AC PO Clonazepam 1 MG ONCE ONE 11/04 1115 DC PO 11/04 1116 Docusate Sodium 100 MG .STK-MED ONE 11/04 1054 DC PO 11/04 1055 Docusate Sodium 100 MG AT BEDTIME PRN 11/02 0800 AC 11/04 PO 1100 Enoxaparin Sodium 40 MG 2030 11/02 2030 AC 11/04 SC 210 Escitalopram Oxalate 10 MG DAILY 11/05 09 AC PO Guaifenesin 600 MG Q12 11/03 2100 AC 11/04 PO 210 Hydroxyzine HCl 50 MG AT BEDTIME NEED.. 11/03 0000 AC PO Ibuprofen 800 MG .STK-MED ONE 11/04 1851 DC PO 11/04 1852 Ibuprofen 800 MG .STK-MED ONE 11/04 1309 DC PO 11/04 1310 Ibuprofen 800 MG Q6P PRN 11/02 0800 AC 11/05 PO 0056 Lactated Ringer's 1,000 ML Q8H 11/02 0800 AC 11/03 IV 0230 Lactated Ringer's 1,000 ML Q8H 11/02 0645 AC 11/02 IV 0622 Magnesium Hydroxide 30 ML DAILY NEEDED PRN 11/02 08 AC PO Oxycodone/ 1 TAB Q4P PRN 11/02 08 AC 11/03 Acetaminophen PO 0915 Oxycodone/ 2 TAB Q4P PRN 11/02 0800 AC 11/05 Acetaminophen PO 0100 Prednisone 40 MG DAILY 11/03 1803 AC 11/04 PO 11/06 0901 0924 Senna 187 MG AT BEDTIME NEED.. 11/02 08 AC PO Results Last 24 Hrs Lab/Michael Results: no leukocytosis, normocytic aniema
[2017-11-05] MEDS ORDERED: IBUPROFEN800 M1 PO (09:30)
[2017-11-05] MEDS ORDERED: XANAX0.25 M1 PO (09:30)
[2017-11-05] MEDS ORDERED: PERCOCET 5-3251 EACH PO (09:30)
[2017-11-05] MEDS ORDERED: LEXAPRO10 M1 PO (09:30)
== END 2017-11-05 11:45 | DRG 540 ==
LOC: GNO 06:03
PROVIDERS: Specialist
PROC: 0UT70ZZ Resection of Bilateral Fallopian Tubes, Open Approach (ICD-10-PCS; principal; 2017-11-02)
PROC: 10D00Z1 Extraction of Products of Conception, Low, Open Approach (ICD-10-PCS; principal; 2017-11-02)
DX: O34.211 Maternal care for low transverse scar from previous cesarean delivery (principal); N85.8 Other specified noninflammatory disorders of uterus; Z3A.39 39 weeks gestation of pregnancy; Z37.0 Single live birth; Z88.0 Allergy status to penicillin; O99.513 Diseases of the respiratory system complicating pregnancy, third trimester; O99.343 Other mental disorders complicating pregnancy, third trimester; F31.9 Bipolar disorder, unspecified; J45.909 Unspecified asthma, uncomplicated; Z30.2 Encounter for sterilization
CPT/HCPCS: GNOS; 36415; 71045; 87086; J0131; J1200; J1580; J1650; J1885; J3490; J7120

== ENCOUNTER 2017-11-10 16:13 | Emergency (ER) | payer OTHER ==
[~2017-11-10] VITALS: Ht 170.2 cm; Wt 120.2 kg
[~2017-11-10 16:13] MED LIST changes: +LEXAPRO10 M1 PO; +XANAX0.25 M1 PO
--- NOTE | 2017-11-10 17:13 | ED SKIN/ALLERGY COMPLAINT ---
History of Present Illness General Chief Complaint: General Adult Stated Complaint: PT IS HAVING PAIN IN THE INSCION Source: patient, old records Exam Limitations: no limitations Vital Signs & Intake/Output Vital Signs & Intake/Output Vital Signs Date Time Temp Pulse Resp B/P B/P Pulse O2 O2 Flow FiO2 Mean Ox Delivery Rate 11/10 1617 98.4 67 18 135/84 98 Room Air Allergies Coded Allergies: shellfish derived (Severe, ANAPHYLAXIS 09/07/15) Penicillins (HIVES 07/19/15) Reconcile Medications Albuterol Sulfate (Proair Hfa) 90 MCG HFA.AER.AD 2 PUF INH Q6 PRN ASTHMA/ WHEEZING Alprazolam (Xanax) 0.25 MG TABLET 0.25 MG PO Q6P PRN ANXIETY Cephalexin 250 MG CAPSULE 1 CAP PO 4 TIMES/DAY WOUND Escitalopram Oxalate (Lexapro) 10 MG TABLET 10 MG PO DAILY ANXIETY Ibuprofen 800 MG TABLET 800 MG PO Q6P PRN UTERINE CRAMPING Oxycodone HCl/Acetaminophen (Percocet 5-325 MG Tablet) 5 MG-325 MG TABLET 1 TAB PO BID WOUND Oxycodone HCl/Acetaminophen (Percocet 5-325 MG Tablet) 5 MG-325 MG TABLET 1 TAB PO Q4P PRN PAIN SCALE 4-6 (MODERATE) Pnv#67/Iron Ps/FA Cmb#1/Dha (Vitafol Ultra Softgel) 29 MG IRON-1 MG-200 MG CAPSULE 1 CAP PO DAILY (Reported) Triage Note: DONE 11/02, STARTED W CLEAR DRAINAGE FROM INCISION SITE LAST NIGHT AND NOW TODAY STATES IT IS YELLOW IN COLOR. +PAIN TO SITE. AFEBRILE FOLLOWED BY DR PURVIS, SPOKE TO DR JORDAN CONTROL SYSTEM COMPUTER SCIENTIST TODAY. Triage Nurses Notes Reviewed? yes : No Patient currently breastfeeds: No HPI: 36F PMH asthma, recent on 11/04 after which she complained of SOB and wheezing and was placed on Prednisone, presents to ER today with complaints of leakage from her surgical wound from her . Had a normal without complication and healthy baby, was discharged home without complication. Yesterday, she noted clear drainage from the left side of the surgical wound which has greatly increased in volume. It is now profuse, yellow, thin, clear, and can be pink tinged at times. She has no vaginal discharge. There is no pain. She denies fever, chills, nausea, vomiting, chest pain, SOB, abdominal pain, diarrhea, dysuria. No trauma or exertion that would cause dehiscence. No other complaints. Past History Travel History Traveled to [place] past 21 day No Medical History Any Pertinent Medical History? see below for history Neurological: NONE EENT: NONE Cardiovascular: NONE Respiratory: NONE Gastrointestinal: NONE Hepatic: NONE Renal: NONE Musculoskeletal: NONE Psychiatric: NONE Endocrine: NONE Blood Disorders: NONE Cancer(s): NONE Surgical History Surgical History: non-contributory Psychosocial History What is your primary language Australian Tobacco Use: Never used Family History Hx Contributory? No Review of Systems Review of Systems Constitutional: Reports: no symptoms. EENTM: Reports: no symptoms. Respiratory: Reports: no symptoms. Cardiovascular: Reports: no symptoms. GI: Reports: no symptoms. Genitourinary: Reports: no symptoms. Musculoskeletal: Reports: no symptoms. Skin: Reports: no symptoms. Neurological/Psychological: Reports: no symptoms. Hematologic/Endocrine: Reports: no symptoms. Immunologic/Allergic: Reports: no symptoms. All Other Systems: Reviewed and Negative Physical Exam Physical Exam General Appearance: well developed/nourished, no apparent distress Head: atraumatic, normal appearance Eyes: Bilateral: normal appearance. Ears, Nose, Throat: normal pharynx, normal ENT inspection, hearing grossly normal Neck: normal inspection, full range of motion Respiratory: normal breath sounds, no respiratory distress Cardiovascular: regular rate/rhythm Gastrointestinal: soft, non-tender Back: normal inspection, normal range of motion Extremities: normal inspection, normal range of motion Neurologic/Psych: awake, alert, oriented x 3, normal mood/affect Skin: healing surgical wound transverse lower adomen, no erythema or fluctuance or warmth, signifiant drainage of yellow serous fluid from left side of wound. Bedside ultrsound revealed no abscess pockets. Non-tender. Progress Differential Diagnosis: abscess/cellulitis, contact dermatitis, drug reaction, erythema multiforme, urticaria Plan of Care: Orders Procedure Date/time Status LACTIC ACID 11/10 1932 Active TRUNK AREA CULTURE 11/10 1816 Active BLOOD CULTURE 11/10 1632 Active URINALYSIS 11/10 1632 Active LACTIC ACID 11/10 1632 Complete CBC WITHOUT DIFFERENTIAL 11/10 163 Complete BASIC METABOLIC PANEL 11/10 1632 Complete Laboratory Tests 11/10/17 1712: Anion Gap 9, Estimated GFR > 60, BUN/Creatinine Ratio 20.0, Glucose 93, Lactic Acid 0.5 L, Calcium 9.5, CBC w Diff NO MAN DIFF REQ, RBC 3.87 L, MCV 91.4, MCH 31.0, MCHC 33.9, RDW 13.1, MPV 7.2 L, Gran % 62.9, Lymphocytes % 27.5, Monocytes % 7.2, Eosinophils % 1.9, Basophils % 0.5, Absolute Granulocytes 4.2, Absolute Lymphocytes 1.8, Absolute Monocytes 0.5, Absolute Eosinophils 0.1, Absolute Basophils 0 Microbiology 11/11 1815 TRUNK: Culture & Sensitivity - ORD 11/11 1815 TRUNK: Gram Stain - ORD 11/11 1711 BLOOD: Blood Culture - RECD 11/10 163 BLOOD: Blood Culture - CAN Cancelled: Cancelled via OE: 2ND SET NOT NEEDED Dr. Jrodan from MEDIA MARKETING COORDINATOR was consulted and came to bedside, probed wound with no pus , placed 2 sutures. Patient will be discharged home and follow up with Dr. De La Cruz. The wound is no longer draining. Departure Departure Disposition: HOME OR SELF CARE Condition: Stable Clinical Impression Primary Impression: Seroma Secondary Impressions: Wound dehiscence Referrals: Patient Has No Primary Care Dr (PCP/Family) Yaniv MERCER,Claudette Ochoa Additional Instructions: FOllow up with Dr. Purvis. Keep the area clean and dry. If you notice change in the color of the fluid, warmth, worsening redness, change in smell, fever, chills, nausea, or any other new or worsening symptoms, return to ER. Departure Forms: Customer Survey General Discharge Information Prescriptions: Current Visit Scripts Oxycodone HCl/Acetaminophen (Percocet 5-325 MG Tablet) 1 TAB PO BID #10 TAB Cephalexin 1 CAP PO 4 TIMES/DAY #28 CAP Procedures Ultrasound Ultrasound: normal Progress: Ultrasound of surgical wound revealed no pockets of abscess
[2017-11-10 17:20] LABS: ABSOLUTE BASOPHIL COUNT 0 /CUMM (0.0-0.2); ABSOLUTE EOSINOPHIL COUNT 0.1 /CUMM (0.0-0.7); ABSOLUTE GRANULOCYTE CT 4.2 /CUMM (1.4-6.5); ABSOLUTE LYMPH COUNT 1.8 /CUMM (1.2-3.4); ABSOLUTE MONOCYTE COUNT 0.5 /CUMM (0.10-0.60); BASOPHIL % 0.5 % (0.0-2.0); EOSINOPHIL % 1.9 % (0-5); GRANULOCYTE % 62.9 % (42.2-75.2); HEMATOCRIT 35.3 % (37-47); MEAN CORPUSCULAR HGB CONC 33.9 G/DL (33.0-37.0); MEAN CORPUSCULAR VOLUME 91.4 FL (81.0-99.0); MEAN PLATELET VOLUME 7.2 FL (7.4-10.4); PLATELET COUNT 378 /CUMM (130-400); RBC DISTRIBUTION WIDTH 13.1 % (11.5-14.5); RED BLOOD CELL CT 3.87 /CUMM (4.20-5.40); WHITE BLOOD CELL COUNT 6.7 /CUMM (4.8-10.8)
[2017-11-10] MEDS ORDERED: CEPHALEXIN250 M2 PO (18:35)
[2017-11-10] MEDS ORDERED: PERCOCET 5-3251 EACH PO (18:35)
[2017-11-10 18:56] VITALS: BP 131/87
--- NOTE | 2017-11-10 18:57 | Cons- OBGYN ---
General Information and HPI Consulting Request Date of Consult: 11/10/17 Requested By: Dr Amaya Reason for Consult: Postoperative wound drainage Source of Information: patient Exam Limitations: no limitations History of Present Illness: Patient is a 36 year old female who is s/p repeat LTCS and BTL and now with wound drainage. She called the service on Sunday evening and despite conservative measures was still draining large amounts of fluid per the patient. She called the service today and I informed her to come in for evaluation. Denies nausea vomiting States has hemorrhoids States tenderness to the wound area on the left. Denies fever nor chills Allergies/Medications Allergies: Coded Allergies: shellfish derived (Severe, ANAPHYLAXIS 09/07/15) Penicillins (HIVES 07/19/15) Home Med List: Albuterol Sulfate (Proair Hfa) 90 MCG HFA.AER.AD 2 PUF INH Q6 PRN ASTHMA/ WHEEZING Alprazolam (Xanax) 0.25 MG TABLET 0.25 MG PO Q6P PRN ANXIETY Cephalexin 250 MG CAPSULE 1 CAP PO 4 TIMES/DAY WOUND Escitalopram Oxalate (Lexapro) 10 MG TABLET 10 MG PO DAILY ANXIETY Ibuprofen 800 MG TABLET 800 MG PO Q6P PRN UTERINE CRAMPING Oxycodone HCl/Acetaminophen (Percocet 5-325 MG Tablet) 5 MG-325 MG TABLET 1 TAB PO BID WOUND Oxycodone HCl/Acetaminophen (Percocet 5-325 MG Tablet) 5 MG-325 MG TABLET 1 TAB PO Q4P PRN PAIN SCALE 4-6 (MODERATE) Pnv#67/Iron Ps/FA Cmb#1/Dha (Vitafol Ultra Softgel) 29 MG IRON-1 MG-200 MG CAPSULE 1 CAP PO DAILY (Reported) Current Medications: Current Medications Sig/Tristan Start time Last Medication Dose Route Stop Time Status Admin Lidocaine 20 ML ONCE ONE 11/10 1814 DC 11/10 ID 11/10 Lidocaine 0 .STK-MED ONE 11/10 1814 DC .ROUTE Oxycodone/ 1 TAB ONCE ONE 11/10 1844 AC Acetaminophen PO 11/10 1845 Past History Medical History Blood Transfusion Hx: No Neurological: NONE EENT: NONE Cardiovascular: NONE Respiratory: NONE Gastrointestinal: NONE Hepatic: NONE Renal: NONE Musculoskeletal: NONE Psychiatric: NONE Endocrine: NONE Blood Disorders: NONE Cancer(s): NONE TOP COATER/Reproductive: NONE Other Medical Hx: Asthma Surgical History Pertinent Surgical History: , tubal ligation Psychosocial History Where Do You Live? Home Who Do You Live With? spouse Services at Home: None Primary Language: Maldivian Smoking Status: Never Smoked ETOH Use: denies use Illicit Drug Use: denies illicit drug use Living Will? unknown Power of Card Hanger/HCP? unknown Other Social History: NA Functional Ability ADLs Independent: dressing, eating, toileting, bathing. Ambulation: independent IADLs Independent: shopping, housework, finances, food prep, telephone, transportation , medication admin. Employment History Employment: Unemployed Retired? no Review of Systems Review of Systems Musculoskeletal: Denies: no symptoms. Skin: Reports: see HPI. Neurological/Psychological: Denies: no symptoms. Hematologic/Endocrine: Denies: no symptoms. Immunologic/Allergic: Denies: no symptoms. All Other Systems: Reviewed and Negative Exam & Diagnostic Data Vital Signs and I&O Vital Signs Date Time Temp Pulse Resp B/P B/P Pulse O2 O2 Flow FiO2 Mean Ox Delivery Rate 11/10 1617 98.4 67 18 135/84 98 Room Air Physical Exam General Appearance: well developed/nourished, alert, anxious Respiratory: no respiratory distress Gastrointestinal: soft, non-tender Extremities: normal inspection Neurologic/Psych: no motor/sensory deficits, awake, alert, oriented x 3, normal mood/affect Cranial Nerves: normal hearing, normal speech Skin: Wound is intact except for one area of less than 1 cm on the left side of the phannensteil incision that is draining serous fluid. No erythema to the wound Remainder of wound intact Last 24 Hours of Labs: Laboratory Tests 11/10 1712 Chemistry Sodium (137 - 145 mmol/L) 138 Potassium (3.5 - 5.1 mmol/L) 4.0 Chloride (98 - 107 mmol/L) 105 Carbon Dioxide (22 - 30 mmol/L) 24 Anion Gap (5 - 16) 9 BUN (7 - 17 mg/dL) 12 Creatinine (0.5 - 1.0 mg/dL) 0.6 Estimated GFR (>60 ml/min) > 60 BUN/Creatinine Ratio (7 - 25 %) 20.0 Glucose (65 - 99 mg/dL) 93 Lactic Acid (0.7 - 2.1 mmol/L) 0.5 L Calcium (8.4 - 10.2 mg/dL) 9.5 Hematology CBC w Diff NO MAN DIFF REQ WBC (4.8 - 10.8 /CUMM) 6.7 RBC (4.20 - 5.40 /CUMM) 3.87 L Hgb (12.0 - 16.0 G/DL) 12.0 Hct (37 - 47 %) 35.3 L MCV (81.0 - 99.0 FL) 91.4 MCH (27.0 - 31.0 PG) 31.0 MCHC (33.0 - 37.0 G/DL) 33.9 RDW (11.5 - 14.5 %) 13.1 Plt Count (130 - 400 /CUMM) 378 MPV (7.4 - 10.4 FL) 7.2 L Gran % (42.2 - 75.2 %) 62.9 Lymphocytes % (20.5 - 51.1 %) 27.5 Monocytes % (1.7 - 9.3 %) 7.2 Eosinophils % (0 - 5 %) 1.9 Basophils % (0.0 - 2.0 %) 0.5 Absolute Granulocytes (1.4 - 6.5 /CUMM) 4.2 Absolute Lymphocytes (1.2 - 3.4 /CUMM) 1.8 Absolute Monocytes (0.10 - 0.60 /CUMM) 0.5 Absolute Eosinophils (0.0 - 0.7 /CUMM) 0.1 Absolute Basophils (0.0 - 0.2 /CUMM) 0 Assessment/Plan Assessment/Plan Patient is s/p LTCS #2 and BTL and now with postoperative seroma. I counseled the patient on the findings and discussed my plan of care with her. I probed the wound and fascia was intact. I was able to break up loculations under the skin and the incision did open to appx 3-4 cm. After that the drainage did cease. I placed two mattress sutures to close the skin but to allow for drainage. Infiltrated with 3 cc of lidocaine 1%. 3-0 vicryl used. Culture was taken and sent to lab. Risk factor for same being morbid obesity. Advised ED Attending to start patient on Keflex 500 mg QID x 5 days to cover for skin anneliese. Advised patient on benefits of Vitamin C for wound healing and to start probiotics to reduce antibiotic associated diarrhea and justin. She may use a guaze pad at the site to prevent local fluid leakage however in my opinion the seroma was rectified with this treatment and the leakage should begin to subside. Follow up this coming week with Dr Purvis for wound assessment. She is ambulating well and no findings of VTE. Face to face time in the ED 30 minutes and ample time given for questions and discussed plan with Dr Harvey. Problem List: 1. Seroma Other Findings/Comments: Consult Acknowledgment - Thank you for your consult request.
== END 2017-11-10 18:58 ==
LOC: ERH 16:13
PROVIDERS: Physician Assistant
DX: L76.34 Postprocedural seroma of skin and subcutaneous tissue following other procedure (principal); O90.0 Disruption of cesarean delivery wound
CPT/HCPCS: 87040; 87070; 87071; J2001